=== PATIENT | female | born 1980 | race African-American/Black ===

== ENCOUNTER 2023-10-11 14:04 | Emergency (ER) | payer BC ==
[~2023-10-11] VITALS: Ht 162.6 cm; Wt 92.0 kg
[2023-10-11] MEDS: diphenhydrAMINE 50 mg/ml inj IM ONE (14:42)
[2023-10-11] MEDS: metoclopramide 5 mg/ml inj IM ONE (14:43)
[2023-10-11] MEDS ORDERED: MECL-231 PO (16:27)
[2023-10-11 16:34] VITALS: BP 106/68; PULSE 70; RESP 16; TEMP 97.7; O2SAT 99
== END 2023-10-11 16:36 | disposition home or self-care (01) ==
LOC: ER 14:05
DX: R42 Dizziness and giddiness (principal)
CPT/HCPCS: 96372; 99284; J1200; J2765